=== PATIENT | female | born 1970 | race Caucasian/White ===

== ENCOUNTER 2023-04-12 09:10 | Day surgery (SDC) | payer BC, SELFPAY ==
--- NOTE | 2023-04-11 14:05 | W.ANESPRE ---
General Info Date of Service Date Performed: 04/12/23 Height: 5 ft 4.5 in Weight: 110.677 kg Body Mass Index (BMI): 41.2 Surgical Procedure: Operation Date: 04/12/23 10:20 Proposed Procedure Side Surgeon leonardo Vogel MD Meds Allergies and Home Medications Allergies Allergy/AdvReac Type Severity Reaction Status Date / Time insect venom Allergy Unknown unknown Verified 04/12/23 09:25 Penicillins Allergy Unknown Other (See Verified 04/12/23 09:25 Comment) Home Medication Medication Instructions Recorded bupropion HCl 300 mg 24 hr tablet, 300 mg PO QAM 04/06/23 extended release citalopram 20 mg tablet 20 mg PO DAILY 04/06/23 ascorbic acid (vitamin C) 1,000 mg 1 g PO DAILY 04/07/23 capsule multivitamin 1 tab PO DAILY 04/07/23 Current Visit Medications: Current Medications Generic Name Dose Route Start Last Admin Trade Name Freq PRN Reason Stop Dose Admin Ringer's Solution 1,000 mls @ 80 mls/hr 04/12/23 06:00 IV 04/12/23 23:59 INFUSION GUSTAVO IV Miscellaneous Supplies 1 each 04/12/23 06:00 Iv Access IV 04/12/23 23:59 DIRECTED GUSTAVO Sodium Chloride 0 ml 04/12/23 06:00 Normal Saline Flush 10 Ml Syr IV 04/12/23 23:59 PRN PRN Sodium Chloride 0 ml 04/12/23 06:00 Normal Saline 10 Ml Vial IJ 04/12/23 23:59 DIRECTED PRN Sterile Water 0 ml 04/12/23 06:00 Water,Injection,Sterile 10 Ml Vial IJ 04/12/23 23:59 DIRECTED PRN PFSH Active Problems Active Problems: Problem Status Onset Code Positive colorectal cancer screening using Cologuard test R19.5 Plantar fascial fibromatosis M72.2 Obesity E66.9 Nicotine dependence F17.200 Cough R05.9 Medical History Medical History Hot flashes Anxiety Surgical History Surgical History History of tubal ligation Tobacco Smoking/Tobacco Use Status: Current every day Tobacco Type: cigarettes Alcohol Alcohol Intake: never Substance Use Substance use: Never Substance use type: does not use Vital Signs and Lab Results Vital Signs Most Recent Vital Signs in EMR: Temp Pulse Resp BP Pulse Ox 36.4 C L 87 16 142/80 H 97 04/12/23 09:26 04/12/23 09:26 04/12/23 09:26 04/12/23 09:26 04/12/23 09:26 Lab Results Blood Type / Crossmatch: No Data to Display Complete Blood Count: No Data to Display Complete Metabolic Panel: No Data to Display Liver Function Panel: No Data to Display Coagulation Panel: No Data to Display Cardiac Panel: No Data to Display Arterial Blood Gas: No Data to Display Venous Blood Gas: No Data to Display Pancreas Panel: No Data to Display Thyroid Panel: No Data to Display Infectious Disease: No Data to Display Blood Cultures: No Data to Display Toxicology Panel: No Data to Display Panel: No Data to Display Anesthesia Assessment and Plan Anesthesia History Personal History: No History of Anesthesia Complications Family History: No Family History of Anesthesia Complications Exercise Tolerance Exercise Tolerance: Metabolic Equivalents>4 Cardiac & Pulmonary Exam Cardiac Exam: Normal S1/S2 Heart Sounds Pulmonary Exam: Clear Bilateral Breath Sounds Implantable Cardiac Device Does patient have a Pacemaker or an ICD?: No Airway Exam Known Difficult Airway: No Mallampati Class: 4 Mouth Opening: Narrow (< 3cm) Thyromental Distance: Less than 3 cm Neck Range of Motion: Full ROM Neck Circumference: Normal Teeth Condition: Normal Dentition ASA Classification ASA Score: ASA 3 Emergency Case?: No NPO Status NPO Status: NPO Clears >2 hours, Solids >8 hours Status Status: Not Relevant due to Medical History Anesthesia Plan Resuscitation Status: Full Code Anesthesia Technique: General Anesthesia Airway Planned: Natural Airway Monitors Used: Standard Monitors Preoperative Comments:: 52 yo female for colo. Sig PMHx: smoker, anxiety (citalopram),
--- NOTE | 2023-04-11 20:41 | W.PM.DSUDISC ---
Date of service: 04/12/23 Time of Service: 11:33 Discharge Plan Disposition Patient Disposition: Home Condition: Good Discharge Details Reason For Visit: screening colonoscopy Attending Provider: Guillaume Vogel Primary Care Provider: Hui Kline Home Meds and New Rx's Prescriptions: Continued multivitamin Tablet 1 tab PO DAILY ascorbic acid (vitamin C) 1,000 mg capsule 1 g PO DAILY bupropion HCl 300 mg tablet extended release 24 hr 300 mg PO QAM citalopram 20 mg tablet 20 mg PO DAILY Discontinued polyethylene glycol 3350 17 gram/dose powder 238 g PO ONCE Qty: 238 0RF Rx Instructions: take per colonoscopy instructions bisacodyl [Dulcolax (bisacodyl)] 5 mg tablet,delayed release (DR/EC) 5 mg PO ONCE Qty: 4 0RF Rx Instructions: take per colonoscopy instructions Discharge Instructions Instructions: Colorectal Polyps (GEN) Additional Instructions: Annamarie, we were able to complete your colonoscopy today without any difficulty. I found 5 polyps within your rectum. I removed these completely. I also found an area of tissue in the ascending colon that has some features consistent with a polyp. I performed biopsies of this area. Your ileocecal valve, which is the connection between the last part of your small intestine in your large intestine is also a little bit prominent. Aside from the size, I did not see any features that appear worrisome. Similar to the lesion in the ascending colon, I performed biopsies of this as well. Once I have the results from the polyp analysis, and all of the biopsies, I will be in touch with my recommendations moving forward. If you have any questions in the meantime, please do not hesitate to call at any point. 1. If tolerated, consume a soft, low fiber diet for 1-2 days. 2[address] Do not drive, drink alcohol, operate machinery, make critical decisions, or do activities that require coordination or balance for 24 hours. 3. Because air was put into your colon during the procedure, expelling air from your rectum (passing gas or farting) is normal. 4. You may not have a bowel movement for 1-3 days because of the colonoscopy prep. This is normal. 5. Go directly to the emergency room if you notice any of the following: Develop chills (warm to touch), or if you have a thermometer and your temperature is above 101 Difficulty breathing or difficultly swallowing Persistent vomiting Severe abdominal pain, other than gas cramps Severe chest pain Black, tarry stools Any bleeding ? exceeding one tablespoon 6. Call your physician if the site where your intravenous was started becomes red, swollen, painful, and warm to touch. 7. Your physician has reviewed your pre-procedure medications. Please continue to take those medications as previously ordered. You will be given specific information/education regarding any changes to your medications before leaving. Stand Alone Forms: Anesthesia Discharge InstOzzy Styles (DSU) Activity:: Activity as Tolerated Diet:: As Tolerated Discharge Orders Discharge Orders: Discharge Order (Routine); Ordered 04/11/23 Ordered By: Guillaume Vogel DS: Diagnosis Discharge Diagnosis (1) Encounter for screening colonoscopy: Status: Acute Asessment and Plan: Follow-up on polypectomy results
--- NOTE | 2023-04-11 20:43 | COLE_ITS ---
Date of service: 04/12/23 Time of Service: 11:35 Colonoscopy Report Date of procedure: 04/12/23 Pre-op diagnosis general: screening colonoscopy Post-op diagnosis procedure note: other (Colorectal polyps) Procedure: colonoscopy with polypectomy and biopsies Surgeon: Guillaume Vogel Anesthesia Type: General:No Airway Estimated blood loss (mL): 15 Pathology: other (Rectal polyps x 5, 0.5 cm polyp at 25 cm from the anus, ascending colon polyp, ileocecal valve biopsy) Complications: None Disposition: same day Indications: Annamarie is a 52 year old woman who had a positive cologuard test. She needs a follow up screening colonoscopy Prep: Miralax/Dulcolax Procedure Start Time: 10:46 Procedure End Time: 11:14 Retraction Time: 16 Findings: Rectal polyps x 5, polyp at 25 cm, lesion in the ascending colon, prominent ileocecal valve Procedure Description: After the induction of monitored anesthetic care, and with the patient in left lateral decubitus position, I began by performing an external anorectal exam.? Perineum and skin were normal, as was the anal verge.? There was no evidence of external hemorrhoids.? Next, I performed a digital rectal exam.? I did not appreciate any abnormal findings.? Next, I advanced a colonoscope into the rectal vault.? I performed retroflexion.? This was normal.? I turned the camera antegrade, and insufflated the rectal vault. Within the midportion of the rectum were 5 polyps. All were slightly pedunculated. All were just about 0.5 cm. I removed all of these with a combination of cold forcep polypectomy as well as snare polypectomy. Using insufflation, I then advanced the colonoscope beyond the rectal folds and into the sigmoid colon before advancing towards the cecum.? The scope was noted to be in the cecum by identification of the ileocecal valve and appendiceal orifice.? The ileocecal valve sat several centimeters above the cecal floor. It was quite round and prominent. Narrowband imaging was used to assist with analysis. There were no worrisome clinical features aside from the size. I was able to cannulate the terminal ileum with ease. It appeared normal. I brought the camera back into the cecum, and perform some random biopsies of the mucosa overlying the ileocecal valve. This was done with cold forceps without any significant bleeding. I then began withdrawing the colonoscope using repeated irrigation as necessary for full evaluation of the colonic mucosa. Within the ascending colon there was an area of polypoid appearing tissue. It was about 2 cm in its longest dimension. I was not able to remove it completely, but I did perform multiple biopsies of it with cold forceps. There was minimal bleeding here as well. I found another polyp at 25 cm from the anal verge. This was about 0.5 cm and slightly pedunculated. This was removed with a snare polypectomy. Once the scope was withdrawn to the level of the rectum, great care was taken to examine portions of the rectal folds.? Finally, the scope was withdrawn and the patient was brought to the same-day surgery recovery unit as the anesthetic wore off. ?The findings and instructions were shared with the patient prior to discharge. Bandon Bowel Prep Bandon Bowel Prep Right Colon: 2 Left Colon: 3 Transverse Colon: 3 Total Score: 8
[2023-04-12 09:26] VITALS: BP 142/80; PULSE 87; RESP 16; TEMP 36.4; O2SAT 97
[2023-04-12] MEDS: Lactated Ringers 1,000 ML 80 ML IV (09:46)
[2023-04-12 10:12] VITALS: BMI 41.2
--- NOTE | 2023-04-12 10:53 | BOWEL_PTH ---
PATIENT: Annamarie An LOC: [facility] U#:[id number] AGE/SX: 52/F ROOM: RE04/12/[address]: Guillaume Vogel MD : 1970 BED: DIS: 04/12/2023 SPEC #: [id number] RECD: 04/12/23 12:50 STATUS: DELMIS RE #: [id number] LUIS A: 04/12/23 10:[address]: Guillaume Vogel DEPT: Surgical Specimen RECD BY: Allyn Smith ENTERED: 04/12/23 12:52 SP TYPE: Bowel OTHR DR: Hui Kline Tissues: 1 - BIOPSY BOWEL 2 - BIOPSY BOWEL 3 - BIOPSY BOWEL 4 - BIOPSY BOWEL Procedures: GROSS AND MICRO LEVEL 4 Comments: [id number]
[2023-04-12 11:22] VITALS: BP 119/66; PULSE 74; RESP 16; TEMP 36.3; O2SAT 97
--- NOTE | 2023-04-12 11:32 | W.ANESPOSTOP ---
Postoperative Evaluation Date, Time and Location Date Performed: 04/12/23 Time Performed: 11:33 Patient Location: Day Surgery Unit Vital Signs Most Recent Imported Vital Signs: Most Recent Vital Signs Temp Pulse Resp BP Pulse Ox 36.3 C L 74 16 119/66 97 04/12/23 11:22 04/12/23 11:22 04/12/23 11:22 04/12/23 11:22 04/12/23 11:22 Pain Score Most Recent Pain Score: Most Recent Pain Score Pain Level 0 04/12/23 11:22 Assessment Mental Status: Awake (Alert & Oriented to Patient Baseline) Airway and Respiratory Function: Patent airway with normal (patient baseline) respiratory exam Cardiovascular Function: Hemodynamically Stable Hydration Status: Adequately Hydrated Nausea & Vomiting: No Nausea or Vomiting Pain: Pt. Denies Any Pain Peripheral Nerve Block: Patient did not receive a nerve block
[2023-04-12 11:54] VITALS: PULSE 62; RESP 16; TEMP 36.6; O2SAT 98
== END 2023-04-12 12:10 | disposition home or self-care (01) ==
LOC: SUR 09:11
PROVIDERS: PCP Internal Medicine; Visit Provider Surgery
PROC: 0DJD8ZZ Inspection of Lower Intestinal Tract, Via Natural or Artificial Opening Endoscopic (ICD-10-PCS; CPT 45378; principal; 2023-04-12 10:15)
DX: Z12.11 Encounter for screening for malignant neoplasm of colon (principal); K62.1 Rectal polyp; D12.2 Benign neoplasm of ascending colon; R19.5 Other fecal abnormalities
CPT/HCPCS: 45385; 45380; 88305; J2704